=== PATIENT | male | born 1985 | race Caucasian/White ===

== ENCOUNTER → 2021-10-02 | Outpatient (CLI) | payer BC ==
[~2021-10-02] MED LIST: ATIVAN1 MG PO; POTASSIUM20 PO; SEIZURE MEDICATION; TRILEPTAL300 MG PO
[2021-10-02 12:46] LABS: ABSOLUTE BASOPHILS 0.1 thou/uL (0.0-0.2); ABSOLUTE EOSINOPHILS 0.1 thou/uL (0.0-0.7); ABSOLUTE LYMPHOCYTES 1.5 thou/uL (0.8-5.3); ABSOLUTE MONOCYTES 0.9 thou/uL (0.0-1.2); ABSOLUTE NEUTROPHILS 8.6 thou/uL (1.6-8.1); BASOPHILS 0.7 %; HEMATOCRIT 45.4 % (42.0-52.0); HEMOGLOBIN 15.4 gm/dL (14.0-18.0); LYMPHOCYTES 13.2 %; MCH 32.8 pg (26.0-34.0); MCV 96.5 fL (80.0-100.0); MONOCYTES 7.7 %; NUCLEATED RBCS 0 /100WBC; PLATELET COUNT* 191 thou/uL (150-400); POLYS 77.4 %; RBC 4.71 mil/uL (4.50-6.00); RDW-CV 13.5 % (10.5-14.5); WBC 11.1 thou/uL (4.0-11.0)
[2021-10-02 12:58] LABS: ALBUMIN 3.6 g/dL (3.4-5.0); CALCIUM 8.4 mg/dL (8.5-10.1); POTASSIUM 3.1 mmol/L (3.5-5.1); TOTAL BILIRUBIN 0.3 mg/dL (<0.1-1.0); TOTAL PROTEIN 7.2 g/dL (6.4-8.2)
[2021-10-03 18:06] LABS: ANA INTERPRETATION Negative (())
== END ==
LOC: M.LAB 12:27
PROVIDERS: ATTEND Psychiatry & Neurology Neuromuscular Medicine
DX: G40.209 Localization-related (focal) (partial) symptomatic epilepsy and epileptic syndromes with complex partial seizures, not intractable, without status epilepticus (principal)